=== PATIENT | female | born 2005 | race Caucasian/White ===

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

== ENCOUNTER 2023-03-05 13:46 | Emergency (ER) | payer SELFPAY ==
[2023-03-05 13:59] VITALS: BP 110/71; PULSE 79; RESP 16; TEMP 36.4; O2SAT 100; BMI 17.7
[2023-03-05 14:55] LABS: Basophils % 0.3 %; Hematocrit 44.1 % (37.0-47.0); Hemoglobin 14.5 g/dL (11.5-15.3); Lymphocytes # 1.2 10^3/uL (1.5-6.5); Lymphocytes % 8.1 %; Mean Corpuscular HGB Conc 32.9 g/dL (30.0-36.0); Mean Corpuscular Hemoglobin 29.5 pg (28.0-34.0); Mean Corpuscular Volume 89.8 fl (81-99); Mean Platelet Volume 9.4 fL (7.4-10.4); Monocytes # 0.5 10^3/uL (0.2-0.9); Monocytes % 3.3 %; Neutrophils # 12.42 10^3/uL (1.8-8.0); Neutrophils % 87.9 %; Nucleated Red Blood Cells % 0 %; Platelet Count 215 10^3/cmm (130-400); Red Blood Count 4.91 10^6/uL (4.1-5.3); Red Cell Distribution Width 11.8 % (12.1-15.1); White Blood Count 14.1 10^3/uL (4.5-13.0)
[2023-03-05 15:21] LABS: Alanine Aminotransferase 15 U/L (0-33); Alkaline Phosphatase 57 U/L (35-105); Anion Gap 19.3 (5-19); Aspartate Amino Transferase 22 U/L (0-32); Blood Urea Nitrogen 15 mg/dL (6-20); Calcium 9.4 mg/dL (8.5-10.5); Carbon Dioxide 22 mmol/L (22-29); Chloride 103 mmol/L (98-107); Globulin 2.9 g/dL (1.3-4.6); Glomerular Filtration Rate 107.8 mL/min (90-130); Glucose 69 mg/dL (65-115); Osmolality Calculated 289 mOsm/kg (285-295); Potassium 4.3 mmol/L (3.5-5.1); Sodium 140 mmol/L (136-145); Total Protein 7.9 g/dL (6.6-8.7)
[2023-03-05 15:32] VITALS: BP 121/77; PULSE 72; O2SAT 100
--- NOTE | 2023-03-05 15:39 | USR_ITS ---
PROCEDURE INFORMATION: Exam: US Nonobstetric Pelvis; Complete Exam date and time: 03/05/2023 4:12 PM Age: 17 years old Clinical indication: Menstruation abnormalities; Excessive menstruation; Other: 30 days vag bleed; Additional info: Abnormal bleeding, upt neg at home, sexually active, cramping TECHNIQUE: Imaging protocol: Transabdominal pelvic nonobstetric ultrasound. Complete exam. Real time ultrasound with image documentation. COMPARISON: No relevant prior studies available. FINDINGS: Uterus: The uterus is unremarkable. The uterus measures 7.9 x 2.7 x 4.2 cm. The endometrium is unremarkable. Endometrium measures 1.7 mm. Right ovary/adnexa: Multiple subcentimeter follicles in the right ovary. The right ovary measures 3.6 x 2.5 x 1.7 cm. There is flow in the right ovary on Doppler imaging. Left ovary/adnexa: The left ovary measures 3.9 x 3.2 x 3.5 cm. Complex cystic focus in the left ovary measuring 3.1 x 2.0 x 2.7 cm. No flow on Doppler imaging. Findings are suspicious for a hemorrhagic cyst. Flow in the remainder of the left ovary on Doppler imaging. Dilated, tortuous veins in the left adnexa measuring up to 7.7 mm. Findings are suggestive of pelvic congestion syndrome. Intraperitoneal space: No free fluid in the pelvis. Urinary bladder: The bladder is incompletely filled, which can limit evaluation. No focal abnormality in the bladder however. US/US pelv w/transvag [id number] IMPRESSION: 1. Findings suspicious for a hemorrhagic left ovarian cyst. Followup pelvic ultrasound recommended in 12-16 weeks to ensure resolution. 2. Findings suggestive of pelvic congestion syndrome in the left adnexa. Recommend clinical correlation.
--- NOTE | 2023-03-05 15:45 | ED_ITS ---
HPI - Female Genitourinary General: Chief complaint: Vaginal Bleeding Stated complaint: vaginal bleeding for a month, n/v Time Seen by Provider: 03/05/23 14:42 Source: patient Mode of arrival: ambulatory Limitations: no limitations History of Present Illness: Patient presents to the emergency department today accompanied by stepmother and significant other for evaluation treatment of reports of vaginal bleeding for approximately 1 month. Patient states that the bleeding is relatively constant but, at the very beginning she would only note passing of clots when she would urinate and now, it appears she has a normal type flow. Patient is sexually active but denies any vaginal discharge. She reports chronic issues with yeast and states she takes a preventative medication. Patient has taken several at- home test which have all been negative. She denies concerns for an STI. Patient also complains of low abdominal cramping. She states her hips hurt but denies any specific back pains. Patient reports episodes of vomiting as well during this time. She is still tolerating oral intake. Patient reports she is on oral control but this is relatively new for her as she had previously been on the Depo shot. She does not use any type of barrier method during intercourse. Review of Systems General: Reports: 10 or more systems reviewed and unremarkable except in HPI and below PFSH ED PFSH: Medical History Generalized anxiety disorder Oral contraceptive prescribed Vitamin D deficiency Surgical History No history of previous surgery Family History Other Cancer Diabetes Hyperlipidemia Hypertension Denies family history of Dementia Chronic kidney disease (CKD) Stroke Social History Smoking and tobacco status: never smoked Second hand smoke exposure: No Smoking risk assessment/counseling performed?: No Alcohol intake: never Desire information about alcohol rehabilitation?: No Counseling given: No Substance/Drug Use: never Desire information about substance/drug rehabilitation?: No Counseling given: No Adopted: No Caregiver/support person: No Lives independently: No Household members: family Housing: House Marital status: Single Number of children: 0 Highest education level completed: High School Graduate service: No Current occupational status: employed Current occupation: [employer] Current occupational exposures/hazards: No Pets and animals: No Do you think of yourself as: Straight/Heterosexual Current gender identity: Female Physical Exam Const: COMMON NORMALS: no acute distress, patient oriented x3 and alert HENMT: COMMON NORMALS: normocephalic, atraumatic, hearing grossly normal bilaterally and moist oral mucous membranes HEAD & SCALP: normocephalic and atraumatic Eye: COMMON NORMALS: Equal, round and reactive pupils present, EOMs intact bi laterally and conjunctivae normal CONJUNCTIVA: Yes conjunctivae normal PUPIL: Yes Equal, round and reactive pupils present Neck/C-Spine: COMMON NORMALS: full ROM and no JVD Lymph: LYMPHATIC: no lymphadenopathy noted Resp: COMMON NORMALS: normal respiratory effort, No retractions, No use of accessory muscles and clear to auscultation bilaterally AUSCULTATION: clear to auscultation bilaterally Cardio: COMMON NORMALS: no JVD, regular rate and regular rhythm RATE: regular rate RHYTHM: regular rhythm GI: OTHER: Abdomen is soft, tenderness on palpation across the lower abdomen. No right upper quadrant tenderness. No epigastric tenderness. : COMMON NORMALS: Yes no CVA tenderness BLADDER/KIDNEY EXAM: Yes no CVA tenderness Back/Pelvis: COMMON NORMALS: no CVA tenderness, no thoracic nor lumbar tenderness and thoraco-lumbar ROM normal Extremity: COMMON NORMALS: normal to inspection, full ROM and capillary refill normal Neuro: COMMON NORMALS: patient oriented x3 SENSORIUM/ORIENTATION: Yes alert Psych: COMMON NORMALS: mental status grossly normal, Normal thought process present, cooperative, normal affect and activity/motor behavior normal THOUGHT PROCESS: Normal thought process present Skin: COMMON NORMALS: no rashes or lesions noted and no wounds GENERAL SKIN EXAM: no rashes or lesions noted Course Vital Signs: Vital signs: Vital Signs Temperature 97.5 F L 03/05/23 13:59 Pulse Rate 83 03/05/23 17:51 Respiratory Rate 16 03/05/23 13:59 Blood Pressure 112/75 03/05/23 17:37 Pulse Oximetry 100 03/05/23 17:51 Oxygen Delivery Me thod Room Air 03/05/23 17:37 MDM - Female Medical Decision Making Patient's lab work is generally unremarkable. She shows no signs of acute blood loss anemia. Ultrasound does show pelvic congestion as well as an ovarian cyst. Discussed findings on the ultrasound with the patient and explained that we will be referring her on to [facility] for follow-up. I encouraged her to continue taking her oral control pills as it can take some time for the body to get used to the fluctuation in hormone levels. Also, explained to her that she may need to try several different types of oral control pills to find what typ e and strength is best for her cycle. Splane they can have this conversation with the [facility] at their follow-up. Otherwise, watch for any severe worsening of abdominal pains, passing of large blood clots vaginally, or any new onset fever. Patient verbalized understanding and agreement to treatment plan. Differential Diagnosis Likely abdominal pain, constipation, diverticulitis, endometriosis, gastroenteritis and small bowel obstruction Lab Data 03/05/23 14:49 03/05/23 14:49 Radiology Impressions Pelvic/Transvag US 03/05/23 15:39 IMPRESSION: 1. Findings suspicious for a hemorrhagic left ovarian cyst. Followup pelvic ultrasound recommended in 12-16 weeks to ensure resolution. 2. Findings suggestive of pelvic congestion syndrome in the left adnexa. Recommend clinical correlation. Laboratory Results WBC 14.1 10^3/uL (4.5-13.0) H 03/05/23 14:49 RBC 4.91 10^6/uL (4.1-5.3) 03/05/23 14:49 Hgb 14.5 g/dL (11.5-15.3) 03/05/23 14:49 Hct 44.1 % (37.0-47.0) 03/05/23 14:49 MCV 89.8 fl (81-99) 03/05/23 14:49 MCH 29.5 pg (28.0-34.0) 03/05/23 14:49 MCHC 32.9 g/dL (30.0-36.0) 03/05/23 14:49 RDW 11.8 % (12.1-15.1) L 03/05/23 14:49 Plt Count 215 10^3/cmm (130-400) 03/05/23 14:49 MPV 9.4 fL (7.4-10.4) 03/05/23 14:49 Neut % (Auto) 87.9 % 03/05/23 14:49 Lymph % (Auto) 8.1 % 03/05/23 14:49 Bates % (Auto) 3.3 % 03/05/23 14:49 Eos % (Auto) 0.0 % 03/05/23 14:49 Baso % (Auto) 0.3 % 03/05/23 14:49 Neut # (Auto) 12.42 10^3/uL (1.8-8.0) H 03/05/23 14:49 Lymph # (Auto) 1.2 10^3/uL (1.5-6.5) L 03/05/23 14:49 Bates # (Auto) 0.5 10^3/uL (0.2-0.9) 03/05/23 14:49 Eos # (Auto) 0.0 10^3/uL (0.0-0.8) 03/05/23 14:49 Baso # (Auto) 0.0 10^3/uL (0.0-0.1) 03/05/23 14:49 Nucleated RBC % (auto) 0 % 03/05/23 14:49 Nucleated RBCs # 0.0 /100WBC 03/05/23 14:49 Sodium 140 mmol/L (136-145) 03/05/23 14:49 Potassium 4.3 mmol/L (3.5-5.1) 03/05/23 14:49 Chloride 103 mmol/L (98-107) 03/05/23 14:49 Carbon Dioxide 22 mmol/L (22-29) 03/05/23 14:49 Anion Gap 19.3 (5-19) H 03/05/23 14:49 BUN 15 mg/dL (6-20) 03/05/23 14:49 Creatinine 0.7 mg/dL (0.5-0.9) 03/05/23 14:49 GFR Calculation 107.8 mL/min (90-130) 03/05/23 14:49 Glucose 69 mg/dL (65-115) 03/05/23 14:49 Calculated Osmolality 289 mOsm/kg (285-295) 03/05/23 14:49 Calcium 9.4 mg/dL (8.5-10.5) 03/05/23 14:49 Total Bilirubin 1.0 mg/dL (0.15-1.2) 03/05/23 14:49 AST 22 U/L (0-32) 03/05/23 14:49 ALT 15 U/L (0-33) 03/05/23 14:49 Alkaline Phosphatase 57 U/L (35-105) 03/05/23 14:49 Total Protein 7.9 g/dL (6.6-8.7) 03/05/23 14:49 Albumin 5.0 g/dL (3.5-5.2) 03/05/23 14:49 Globulin 2.9 g/dL (1.3-4.6) 03/05/23 14:49 HCG, Qual Negative (Negative) 03/05/23 15:55 Urine Color Yellow (Yellow) 03/05/23 15:55 Urine Appearance Clear (CLEAR) 03/05/23 15:55 Urine pH 5 (5-7) 03/05/23 15:55 Ur Specific Hollister 1.025 (1.005-1.030) 03/05/23 15:55 Urine Protein Neg (Negative) 03/05/23 15:55 Urine Glucose (UA) Norm (Normal) 03/05/23 15:55 Urine Ketones 3+ (Negative) H 03/05/23 15:55 Urine Blood 3+ (Negative) H 03/05/23 15:55 Urine Nitrate Negative (Negative) 03/05/23 15:55 Urine Bilirubin Neg (Negative) 03/05/23 15:55 Urine Urobilinogen Norm mg/dL (Negative) 03/05/23 15:55 Ur Leukocyte Esterase Negative (Negative) 03/05/23 15:55 Urine RBC 0-4 /hpf (0-2) H 03/05/23 15:55 Urine WBC 0-4 /hpf (0-5) H 03/05/23 15:55 Ur Squamous Epith Cells 0-4 /hpf (0-5) H 03/05/23 15:55 Amorphous Sediment Not Reportable 03/05/23 15:55 Urine Bacteria Trace /hpf (NONE) 03/05/23 15:55 Urine Mucus 2+ /hpf 03/05/23 15:55 Discharge Plan Discharge Patient Disposition: Home Clinical Impression: Hemorrhagic cyst of left ovary, Pelvic congestion syndrome Condition: Stable Prescriptions: No Action levocetirizine [Xyzal] 5 mg tablet 5 mg PO DAILY 90 Days Qty: 90 1RF fluticasone propionate [Flonase Allergy Relief] 50 mcg/actuation spray,suspension 1 spray intranasal BID Qty: 16 3RF Rx Instructions: administer into each nostril cephalexin 500 mg capsule 500 mg PO TID 7 Days Qty: 21 0RF cholecalciferol (vitamin D3) 50 mcg (2,000 unit) capsule 50 mcg PO DAILY Qty: 90 1RF Ortho-Novum // (28) 0.5/0.75/1 mg- 35 mcg tablet 1 tab PO DAILY Qty: 28 0RF Rx Instructions: need lab fluoxetine [Prozac] 20 mg capsule 20 mg PO DAILY Qty: 30 2RF Discharge Orders: Discharge ED (Routine); Ordered 03/05/23 Ordered By: Natalie Garnett Referrals: Lm Grant, [email or web address] [Primary Care Provider] - Patient Instructions: Ovarian Cyst (ED) Activity Restrictions/Additional Instructions: Your blood work today was nonconcerning. Your hemoglobin level is normal. Ultrasound showing findings suspicious for a left hemorrhagic ovarian cyst. Also suggestive of possible pelvic congestion syndrome. We have placed a referral for gynecology for further evaluation and treatment of these conditions. You may return to the emergency department for worsening vaginal b leeding or severe pain, fevers, lightheadedness/dizziness/passing out episodes, or any other concerns you may have. We hope you begin to feel better soon. 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
[2023-03-05 16:07] LABS: HCG Qualitative Urine. Negative (Negative)
[2023-03-05 16:13] LABS: Add Urine Culture? No; Add Urine Microscopic? YES; Bacteria Urine TRACE /hpf; Bilirubin Urine Neg (Negative); Blood Urine 3+ (Negative); Glucose Urine UA Norm (Normal); Ketones Urine 3+ (Negative); Leukocyte Esterase Urine Negative (Negative); Mucus Urine 2+ /hpf; Nitrate Urine Negative (Negative); Protein Urine Neg (Negative); RBC Urine 0-4 /hpf (0-2); Specific Gravity, Urine 1.025 (1.005-1.030); Squamous Epithelial Cell Urine 0-4 /hpf (0-5); Urine Appearance Clear (CLEAR); Urine Color Yellow (Yellow); Urobilinogen Urine Norm (Negative); WBC Urine 0-4 /hpf (0-5); pH Urine 5 (5-7)
[2023-03-05 17:37] VITALS: BP 112/75; PULSE 85; O2SAT 100
[2023-03-05 17:51] VITALS: PULSE 83; O2SAT 100
--- NOTE | 2023-03-06 04:59 | DCPLANNER ---
Addendum entered by Kylie Villanueva 03/11/23 15:14: Patient has a follow up appointment scheduled with [facility] - patient did attend appointment. Original Note: informatics manager had message to schedule a follow up appointment for patient with [facility]. informatics manager sent patients information to the front office staff at [facility]. Patients information will be printed and reviewed. Clinic will call patient with appointment information.
== END 2023-03-05 17:52 | disposition home or self-care (01) ==
PROVIDERS: Physician Assistant; Emergency Provider Physician Assistant; PCP Nurse Practitioner
DX: N83.202 Unspecified ovarian cyst, left side (principal); N94.89 Other specified conditions associated with female genital organs and menstrual cycle
CPT/HCPCS: 76830; 76856; 80053; 81001; 81025; 85025; 99284

== ENCOUNTER 2023-06-10 15:17 | Outpatient (CLI) | payer MEDICAID, SELFPAY ==
--- NOTE | 2023-06-10 15:30 | US_ITS ---
WS: [id number] US pelv w/transvag [id number] HISTORY: N83.209 - Unspecified ovarian cyst, unspecified side COMPARISON: 03/05/2023 Uterus: 9.3 cm x 4.6 cm x 3.5 cm. Normal size anteverted uterus. No fibroid or mass. Endometrium: 1.0 cm. Normal. Right ovary: 3.8 cm x 3.4 cm x 2.9 cm. Normal size and vascularity, no cystic or solid masses. Mildly complex RIGHT corpus luteum measures 2.0 x 1.9 x 1.7 cm. Left ovary: 3.1 cm x 2.3 cm x 1.4 cm. Normal size and vascularity, no cystic or solid masses. LEFT he morrhagic ovarian cyst has resolved. Small follicles. Prominent veins in the LEFT adnexa. Mildly complex free fluid in the cul-de-sac. IMPRESSION: 1. Interval resolution of the LEFT ovarian hemorrhagic cyst. 2. LEFT pelvic venous congestion. 3. Small amount of complex fluid in the cul-de-sac. May be the result of a ruptured hemorrhagic cyst.
== END 2023-06-10 15:18 | disposition home or self-care (01) ==
PROVIDERS: PCP Nurse Practitioner; Visit Provider Nurse Practitioner
DX: N83.209 Unspecified ovarian cyst, unspecified side (principal); N94.89 Other specified conditions associated with female genital organs and menstrual cycle
CPT/HCPCS: 76830; 76856

== ENCOUNTER → 2025-03-04 15:32 | Outpatient (BNVA) | payer MEDICAID, SELFPAY | PROVIDERS: PCP Nurse Practitioner Family; Visit Provider Nurse Practitioner Family | DX: H91.90 Unspecified hearing loss, unspecified ear (principal); R73.09 Other abnormal glucose | CPT/HCPCS: 80053; 83036; 84443; 85025 ==

== ENCOUNTER → 2025-04-11 15:56 | Outpatient (BNVA) | payer MEDICAID, SELFPAY | PROVIDERS: PCP Nurse Practitioner Family; Visit Provider Nurse Practitioner Women's Health | DX: N93.9 Abnormal uterine and vaginal bleeding, unspecified (principal); Z01.419 Encounter for gynecological examination (general) (routine) without abnormal findings | CPT/HCPCS: 83520; 84402; 84403; 87491; 87591; 87661; 88175 ==

== ENCOUNTER → 2025-05-14 10:21 | Outpatient (BNVA) | payer MEDICAID, SELFPAY | PROVIDERS: PCP Nurse Practitioner Family; Visit Provider Nurse Practitioner Women's Health | DX: N93.9 Abnormal uterine and vaginal bleeding, unspecified (principal) | CPT/HCPCS: 76830 ==